=== PATIENT | female | born 1945 | race Native Hawaiian/Other Pacific Islander ===

== ENCOUNTER 2016-04-10 11:54 | Outpatient (CLI) | payer OTHER, BC ==
[2016-04-10 12:40] LABS: PLATELET COUNT 199 K/uL (152-353)
[2016-04-10 12:41] LABS: POTASSIUM 4.1 mmol/L (3.6-5.2); SODIUM 140 mmol/L (136-145)
== END 2016-04-10 20:03 | disposition home or self-care (01) ==
LOC: LABW 11:54
PROVIDERS: Internal Medicine Rheumatology
DX: Z79.899 Other long term (current) drug therapy (principal); M05.742 Rheumatoid arthritis with rheumatoid factor of left hand without organ or systems involvement; M05.741 Rheumatoid arthritis with rheumatoid factor of right hand without organ or systems involvement; Z51.81 Encounter for therapeutic drug level monitoring
CPT/HCPCS: 36415; 80053; 85027; 85651; 86140

== ENCOUNTER 2016-05-21 15:01 | Outpatient (CLI) | payer OTHER, BC ==
[2016-05-21 15:20] LABS: PLATELET COUNT 202 K/uL (152-353)
[2016-05-21 15:40] LABS: POTASSIUM 3.8 mmol/L (3.6-5.2); SODIUM 138 mmol/L (136-145)
== END 2016-05-21 21:09 | disposition home or self-care (01) ==
LOC: LABW 15:01
PROVIDERS: Internal Medicine Rheumatology
DX: M06.9 Rheumatoid arthritis, unspecified (principal); Z79.899 Other long term (current) drug therapy; M05.742 Rheumatoid arthritis with rheumatoid factor of left hand without organ or systems involvement; M05.741 Rheumatoid arthritis with rheumatoid factor of right hand without organ or systems involvement
CPT/HCPCS: 36415; 80053; 85027; 85651; 86140

== ENCOUNTER 2016-10-09 11:38 | Outpatient (CLI) | payer OTHER, BC ==
[2016-10-09 12:39] LABS: PLATELET COUNT 194 K/uL (152-353)
[2016-10-09 12:46] LABS: POTASSIUM 3.5 mmol/L (3.6-5.2); SODIUM 138 mmol/L (136-145)
== END 2016-10-09 20:06 | disposition home or self-care (01) ==
LOC: LABW 11:38
PROVIDERS: Internal Medicine Rheumatology
DX: Z79.899 Other long term (current) drug therapy (principal); M81.0 Age-related osteoporosis without current pathological fracture; M05.742 Rheumatoid arthritis with rheumatoid factor of left hand without organ or systems involvement; M05.741 Rheumatoid arthritis with rheumatoid factor of right hand without organ or systems involvement
CPT/HCPCS: 36415; 80053; 85027; 85651